=== PATIENT | female | born 1995 | race Caucasian/White ===

== ENCOUNTER 2018-04-12 04:11 | Inpatient (IN) ==
--- NOTE | 2018-04-12 04:02 | OB/GYN History & Physical ---
Date of Encounter: 04/12/18 Time of Encounter: 03:58 Assessment and Plan (1) 39 weeks gestation of Current visit: Yes Status: Acute admitted for delivery (2) Spontaneous rupture of membranes Current visit: Yes Status: Acute admitted for delivery Dr. Syeda paige GBS: negative History of Present Illness Chief complaint: SROM HPI: Ms. Brandon is a 22 year old female @ 39w5d presents to labor and delivery with complaints of spontaneous rupture of membranes around midnight. Patient reports contractions and good movement. 5/100/0 upon arrive per RN. Patient denies any complications with . Patient receives care with Dr. Lerma. Blood type: A Positive Rubella: Immune Hep B: Nonreactive GBS: Negative Past Med Surg Social Fam HX - Past Medical History Source: patient Medical history: no medical history, other Psychiatric history: no psych history - Past Surgical History Surgical History: no surgical history - Social History Smoking Status: Never smoker Smokeless Tobacco Status: No Alcohol use: none Drug use: none Current living situation: Home - Independent Recent Out of Country Travel Within the Last 8 Weeks: No Exposure or Possible Exposure to Illness During Travel: No - Family History Mother Hx Family Cardiac Disorders: No Hx Family Respiratory Disorders: No Hx Family Cancer: No Hx Family GI Disorders: No Hx Family Genitourinary Disorders: No Hx Family Endocrine Disorder: No Hx Family Musculoskeletal Disorders: No Hx Family Neuromuscular Disorders: No Hx Family Neurologic Disorders: No Hx Family HEENT Disorders: No Hx Family Autoimmune Disorders: No Hx Family Reproductive Disorders: No Hx Family Psychosocial Disorders: No Hx Family Medical Disorders: No Obstetrical History - Pregnancies : 2 Para: 0 Term: 0 : 0 Ab's: 1 Livin Medications and Allergies One Daily Tablet 1 tab PO DAILY 03/14/18 [History] Allergy/AdvReac Type Severity Reaction Status Date / Time No Known Allergies Allergy Verified 03/14/18 16:27 Review of System OB - Constitutional Constitutional ROS IM: no chills, no fever(s), no headache(s) - Cardiovascular Cardiovascular: no chest pain, no leg edema, no lightheadedness, no palpitations, no pedal edema, no syncope - Respiratory Respiratory: no cough - Gastrointestinal Gastrointestinal: no abdominal pain, no heartburn, no vomiting - Genitourinary Genitourinary: vaginal discharge (clear fluid), no abnormal vaginal bleeding, no dysuria, no flank pain, no urinary frequency, no urinary incontinence, no vaginal odor, no vaginal pruritis Exam - Constitutional Constitutional: well developed, well nourished, no acute distress, average body habitus - HEENT HEENT: Normocephaly, Mucus Membranes Moist - Neck Neck exam: full ROM, supple - Lungs Respiratory exam: CTAB - Cardiovascular Cardiovascular exam: RRR, +S1, +S2 - Abdomen Abdomen: Present: bowel sounds normal, gravid, non tender - Extremities Extremities exam: full ROM, normal capillary refill, normal inspection Deep Tendon Reflex Grade: 2+ Normal - Cervix Dilation: 5 Effacement: 100 Station: 0 - Uterus Uterus exam: Present: normal size, normal contour - Comments Comments: FHR 120 bpm moderate variability +15x15 accels no decels noted. Contractions 2-3 min apart Cat. 1 tracing Results All other labs normal.
[~2018-04-12 04:11] MED LIST: *HR* Nalbuphine 10 MG/ML AMPUL IVP PRN; Famotidine 20 MG/2 ML VIAL IVP PRN; Metoclopramide 10 MG/2 ML VIAL IVP PRN; Naloxone 0.4 MG/ML INJ IVP PRN; Ondansetron 4 MG/2 ML VIAL IVP PRN; Ringers Solution, Lactated 1,000 ML IVC SCH; Ringers Solution, Lactated 1,000 ML ONE
[2018-04-12] MEDS ORDERED: Oxytocin 20 units/ LR 1000 mL 20 UNIT/1,000 ML BAG IVC ONE (04:17)
[2018-04-12 04:21] LABS: Basophils % 0.1 %; Eosinophils # 0.1 K/mcL (0.0-0.6); Eosinophils % 0.4 %; Hematocrit 40.9 % (35.3-44.9); Hemoglobin 14.3 g/dL (11.5-15.4); Immature Granulocytes % 0.5 % (0-4); Lymphocytes # 1.3 K/mcL (0.6-4.6); Lymphocytes % 7.9 %; Mean Corpuscular Volume 85.9 fL (83.0-100.0); Monocytes # 1.2 K/mcL (0.0-1.3); Monocytes % 6.9 %; Neutrophils # 14.3 K/mcL (1.6-8.9); Platelet Count 254 K/mcL (140-400); Red Blood Count 4.76 M/mcL (3.82-4.97); Red Cell Distribution Width 12.3 % (11.5-14.5); Segmented Neutrophils % 84.2 %
--- NOTE | 2018-04-12 05:12 | OB/GYN Procedure Note ---
Delivery - Delivery Date: 04/12/18 Provider: Aurelia Ascencio Intrapartum events: precipitous labor- <3hr Delivery induction: none Delivery monitor: external FHT, external uterine Anesthesia: local (for repair) Quantitated Blood Loss: 100 - (s) Infant A Delivery Date: 04/12/18 Delivery Time: 04:33 Presentation: vertex Position: PEREZ Route of delivery: Gender: Female Viability: Viable Pounds: 7 Ounces: 5 Weight Gram: 3310 kg at 1 minute: 9 at 5 mins: 10 Shoulder Dystocia: not encountered Shoulder Dystocia Maneuvers: Katja maneuver Specimens collected: cord blood Placenta: spontaneous Cord: 3 umbilical vessels - Repair Episiotomy: none Laceration Description: Perineal - 1st Degree (repaired with 3-0 vicryl) - Complications Delivery complications: none - Disposition Mom disposition: stable in LDR [place] disposition: stable in LDR - Comments Comments: Called to LDR, patient complete and has the urge to push. Patient placed in stirrups and prepped for vaginal delivery. Under maternal effort patient patient spontaneously delivered a viable female infant over a 1st degree perineal laceration. No nuchal cord, shoulder dystocia or meconium encountered. was placed on maternal abdomen. A 1st degree perineal laceration was repaired with 4-0 vicryl. 1% lidocaine was used to anesthetize for repair. After cord stopped pulsating cord was clamped and cut. Placenta delivered spontaneously and intact. EBL 100. All counts correct. Pericare provided. Both Mother and stable in LDR for 2 hour recovery.
[2018-04-12] MEDS ORDERED: Oxytocin 20 units/ LR 1000 mL 20 UNIT/1,000 ML BAG IVC SCH (08:30)
[2018-04-12] MEDS ORDERED: Benzocaine/Menthol 56 GM AEROSOL SPRAY TP PRN (08:30)
[2018-04-12] MEDS ORDERED: Ibuprofen 600 MG TABLET PO PRN (08:30)
[2018-04-12] MEDS ORDERED: Lanolin 7 G OINT...G. TP PRN (08:30)
[2018-04-12] MEDS ORDERED: Acetaminophen 325 MG TABLET PO PRN (08:30)
[2018-04-12] MEDS ORDERED: Measles/Mumps/Rubella Vacc 0.5 ML VIAL SQ PRN (08:30)
[2018-04-12] MEDS ORDERED: Prenatal Vit/FA 1 EACH TABLET PO SCH (09:00)
[2018-04-13 08:22] VITALS: BP 133/79
--- NOTE | 2018-04-13 09:00 | Discharge Summary ---
Date of Encounter: 04/13/18 Time of Encounter: 10:03 - Discharge Diagnosis (1) Vaginal delivery Priority: Primary Status: Acute Comments: Patient meeting day one milestones. Pain well-controlled with prescribed medications. Voiding without difficulty, tolerating regular diet. No bowel movement yet. Anticipate discharge today. (2) First degree perineal laceration Priority: Secondary Status: Acute Comments: Ice pack, Dermoplast, and Motrin for pain as needed. (3) Breast feeding status of mother Priority: Secondary Status: Acute Comments: support prn Breast pump Rx to be given if needed. - Discharge Medications Prescriptions: Ibuprofen [Motrin] 600 mg PO Q6HR PRN #60 tablet PRN Reason: Cramping Breast Pump [BREAST PUMP] 1 each .ROUTE AD #1 each Home Medications: One Daily Tablet 1 tab PO DAILY 03/14/18 [History] Acetaminophen [Tylenol] 650 mg PO Q6HR PRN tablet 04/13/18 [Rx] Benzocaine/Menthol [place] [Dermoplast [place]] 1 appl TP QID PRN aerosol 04/13/18 [Rx] Breast Pump [BREAST PUMP] 1 each .ROUTE AD #1 each 04/13/18 [Rx] Docusate [Colace] 100 mg PO BID capsule 04/13/18 [Rx] Ibuprofen [Motrin] 600 mg PO Q6HR PRN #60 tablet 04/13/18 [Rx] Lanolin [Lansinoh] 1 appl TP TID PRN oint...g. 04/13/18 [Rx] Allergies/Adverse Reactions: Allergy/AdvReac Type Severity Reaction Status Date / Time No Known Allergies Allergy Verified 03/14/18 16:27 Data Procedures and tests throughout hospitalization: Laboratory Tests 04/12/18 04:00 WBC 17.0 H RBC 4.76 Hgb 14.3 Hct 40.9 MCV 85.9 MCH 30.0 MCHC 35.0 RDW 12.3 Plt Count 254 MPV 11.0 Immature Gran % 0.5 Seg Neutrophils % 84.2 Lymphocytes % 7.9 Monocytes % 6.9 Eosinophils % 0.4 Basophils % 0.1 Neutrophils # 14.3 H Lymphocytes # 1.3 Monocytes # 1.2 Eosinophils # 0.1 Basophils # 0.0 Date of admission: 04/12/18 04:11 Primary care physician: PCP NONE Consults: 04/12/18 08:30 Consult to [employer] [CONS] Routine Comment: Vaginal delivery, consult needed Discharging clinician: Melvina Hutton Anticipated date of discharge: 04/13/18 - Patient Status Disposition: Home, Self-Care Condition: Good Functional capacity at discharge: independent ambulation Overall status at discharge: patient is progressing back to baseline - Discharge Instructions Follow Up With: NONE,PCP [Primary Care Provider] - - Diet and Activity Activity: resume usual activities as tolerated Diet: regular diet Hospital Course Reason for admission: IUP at term, ROM Delivery: Episiotomy: none Laceration: 1st degree Other procedures: none complications: none Discharge diagnosis: IUP at term delivered [place] baby: female Hospital course: Patient meeting day one milestones. Pain well-controlled with prescribed medications. Voiding without difficulty. No bowel movement yet. Anticipate discharge today Delivery Date: 04/12/18 Provider: Aurelia Ascencio Intrapartum events: precipitous labor- <3hr Delivery induction: none Delivery monitor: external FHT, external uterine Anesthesia: local (for repair) Quantitated Blood Loss: 100 - Infant (s) Infant A Infant Delivery Date: 04/12/18 Delivery Time: 04:33 Presentation: vertex Position: PEREZ Route of delivery: Gender: Female Viability: Viable Pounds: 7 Ounces: 5 Weight Gram: 3310 kg at 1 minute: 9 at 5 mins: 10 Shoulder Dystocia: not encountered Shoulder Dystocia Maneuvers: Katja maneuver Specimens collected: cord blood Placenta: spontaneous Cord: 3 umbilical vessels - Repair Episiotomy: none Laceration Description: Perineal - 1st Degree (repaired with 3-0 vicryl) - Complications Delivery complications: none - Disposition Mom disposition: stable in LDR disposition: stable in LDR - Comments Comments: Called to LDR, patient complete and has the urge to push. Patient placed in stirrups and prepped for vaginal delivery. Under maternal effort patient patient spontaneously delivered a viable female infant over a 1st degree perineal laceration. No nuchal cord, shoulder dystocia or meconium encountered. was placed on maternal abdomen. A 1st degree perineal laceration was repaired with 4-0 vicryl. 1% lidocaine was used to anesthetize for repair. After cord stopped pulsating cord was clamped and cut. Placenta delivered spontaneously and intact. EBL 100. All counts correct. Pericare provided. Both Mother and Infant stable in LDR for 2 hour recovery. Time Attestation: Total time spent providing and/or coordinating discharge services: Time Spent: Less than 30 minutes Exam - Constitutional Vitals: Temp Pulse Resp BP Pulse Ox 99 F 90 14 133/79 97 04/13/18 08:21 04/13/18 08:21 04/13/18 08:21 04/13/18 08:21 04/13/18 08:21 General appearance IM: cooperative, A&O X 3, pleasant, no acute distress, answers questions appropriately - Respiratory Respiratory exam: Present: CTAB - Cardiovascular Cardiovascular exam IM: Present: RRR, +S1, +S2 - GI/Abdominal GI/Abdominal exam IM: normal bowel sounds, soft - Rectal Rectal exam: deferred - Uterine Tone: Firm Uterus Position: At Umbilicus - Extremities Exam Extremities exam IM: Present: full ROM, normal capillary refill, normal inspection - Neurological Exam Neurological exam: alert, normal gait, oriented X3
== END 2018-04-13 10:20 | disposition home or self-care (01) | DRG 807 ==
LOC: 1NENULAB → 1NENUOBS 08:31
PROVIDERS: ADMIT Advanced Practice Midwife; ATTEND Advanced Practice Midwife

== ENCOUNTER 2019-12-15 21:23 | Inpatient (IN) ==
[~2019-12-15 21:23] MED LIST changes: +*HR* FentaNYL (PF) 100 MCG/2 ML VIAL IVP PRN; +*HR* HYDROcodone/Acet 5/325 mg TABLET PO PRN; -*HR* Nalbuphine 10 MG/ML AMPUL IVP PRN; +Azithromycin 500 MG in 0.9 % Sodium Chloride 250 ML IVPB ONE; +NIFEdipine 10 MG CAPSULE PO ONE; -Ringers Solution, Lactated 1,000 ML IVC SCH; -Ringers Solution, Lactated 1,000 ML ONE
[2019-12-15] MEDS ORDERED: Acetaminophen 325 MG TABLET PO ONE (21:28)
[2019-12-15] MEDS ORDERED: Ringers Solution, Lactated 1,000 ML IVC SCH (21:30)
[2019-12-15 21:47] LABS: Basophils % 0.2 %; Eosinophils % 0.1 %; Hematocrit 37.3 % (35.3-44.9); Hemoglobin 12.5 g/dL (11.5-15.4); Immature Granulocytes % 0.8 % (0-4); Lymphocytes # 0.9 K/mcL (0.6-4.6); Lymphocytes % 4.9 %; Mean Corpuscular HGB Conc 33.5 g/dL (31.6-35.5); Mean Corpuscular Volume 89.7 fL (83.0-100.0); Mean Platelet Volume 10.2 fL (9.4-12.4); Monocytes # 0.9 K/mcL (0.0-1.3); Monocytes % 4.9 %; Platelet Count 205 K/mcL (140-400); Red Blood Count 4.16 M/mcL (3.82-4.97); Red Cell Distribution Width 12.2 % (11.5-14.5); Segmented Neutrophils % 89.1 %
[2019-12-15 22:11] LABS: Prothrombin Time 10.9 Seconds (9.4-12.1)
[2019-12-15 22:13] LABS: Activated Partial Thrombo Time 23.5 Seconds (26.0-36.0)
[2019-12-15 22:16] LABS: Gardnerella DNA Not Detected (Not Detect); Trichomonas DNA Not Detected (Not Detect)
[2019-12-15 22:17] LABS: Candida DNA DETECTED (Not Detect)
[2019-12-15] MEDS ORDERED: Fluconazole 150 MG TABLET PO ONE (22:44)
[2019-12-16] MEDS: Betamethasone Acet/SodPhos 30 MG/5 ML VIAL IM SCH (02:58)
[2019-12-16] MEDS ORDERED: NIFEdipine 10 MG CAPSULE PO ONE (04:00)
[2019-12-16] MEDS: Acetaminophen 325 MG TABLET PO PRN ×3 (07:16→21:18)
[2019-12-17] MEDS: Acetaminophen 325 MG TABLET PO PRN ×2 (04:20→11:11)
[2019-12-17] MEDS: Betamethasone Acet/SodPhos 30 MG/5 ML VIAL IM SCH (04:49)
[2019-12-17 08:09] VITALS: BP 107/67
== END 2019-12-17 11:23 | disposition home or self-care (01) | DRG 563 ==
LOC: 1NENULAB → 1NENUPED 12-16 17:43
PROVIDERS: ADMIT Obstetrics & Gynecology; ATTEND Obstetrics & Gynecology

== ENCOUNTER 2020-03-11 22:30 | Inpatient (IN) ==
[~2020-03-11 22:30] MED LIST changes: -*HR* FentaNYL (PF) 100 MCG/2 ML VIAL IVP PRN; -*HR* HYDROcodone/Acet 5/325 mg TABLET PO PRN; -Azithromycin 500 MG in 0.9 % Sodium Chloride 250 ML IVPB ONE; +Lidocaine 1% 20 ML MDV INFILT PRN; +Lidocaine 1% 20 ML MDV ONE; -NIFEdipine 10 MG CAPSULE PO ONE; -Naloxone 0.4 MG/ML INJ IVP PRN; -Ondansetron 4 MG/2 ML VIAL IVP PRN; +Oxytocin 20 units/ LR 1000 mL 20 UNIT/1,000 ML BAG IVC ONE
[2020-03-11] MEDS ORDERED: *HR* Oxytocin 10 UNIT/ML VIAL IM ONE (23:39)
[2020-03-12] MEDS ORDERED: Lanolin 7 G OINT...G. TP PRN (00:45)
[2020-03-12] MEDS ORDERED: Oxytocin 20 units/ LR 1000 mL 20 UNIT/1,000 ML BAG IVC SCH (00:45)
[2020-03-12] MEDS ORDERED: Acetaminophen 325 MG TABLET PO PRN (00:45)
[2020-03-12] MEDS ORDERED: Benzocaine/Menthol 56 GM AEROSOL SPRAY TP PRN (00:45)
[2020-03-12 04:15] LABS: Basophils % 0.1 %; Eosinophils % 0.1 %; Hematocrit 39.2 % (35.3-44.9); Hemoglobin 13.3 g/dL (11.5-15.4); Immature Granulocytes % 0.5 % (0-4); Lymphocytes # 1.7 K/mcL (0.6-4.6); Lymphocytes % 9.9 %; Mean Corpuscular HGB Conc 33.9 g/dL (31.6-35.5); Mean Corpuscular Volume 88.3 fL (83.0-100.0); Mean Platelet Volume 10.3 fL (9.4-12.4); Monocytes # 0.8 K/mcL (0.0-1.3); Monocytes % 4.6 %; Neutrophils # 14.9 K/mcL (1.6-8.9); Platelet Count 254 K/mcL (140-400); Red Blood Count 4.44 M/mcL (3.82-4.97); Red Cell Distribution Width 12.8 % (11.5-14.5); Segmented Neutrophils % 84.8 %; White Blood Count 17.6 K/mcL (4.3-11.1)
[2020-03-12] MEDS: Ibuprofen 600 MG TABLET PO PRN ×2 (08:29→18:28)
[2020-03-12] MEDS ORDERED: Prenatal Vit/FA 1 EACH TABLET PO SCH (09:00)
[2020-03-12 20:44] VITALS: BP 128/76
== END 2020-03-12 23:40 | disposition home or self-care (01) | DRG 807 ==
LOC: 1NENULAB → 1NENUOBS 03-12 00:44
PROVIDERS: ADMIT Student in an Organized Health Care Education/Training Program; ATTEND Student in an Organized Health Care Education/Training Program